=== PATIENT | female | born 1970 | race Caucasian/White ===

== ENCOUNTER → 2017-10-18 | Outpatient (CLI) | payer OTHER ==
[~2017-10-18] MED LIST: CALCIT950 PO; CENTRUM SILVER1 EACH PO; CETI5 PO; DOCU SOFT PO; HYDR-86 PO; LAVAP17G PO; Super B Comple150 MG PO; Ventolin/Prove6.7 GM; [UNRECOGNIZED DRUG - OTHER]
[2017-10-20 13:03] LABS: HPV Genotype 16 Not Detected (NOTDET); HPV Genotype 18 Not Detected (NOTDET)
[2017-10-26 08:16] LABS: HPV High Risk Other Not Detected (NOTDET)
[2017-10-27 09:35] LABS: Source CERVIX
== END | disposition home or self-care (01) ==
LOC: OLS 12:54 → LAB SHORT 12:54
PROVIDERS: Nurse Practitioner Women's Health
DX: Z12.4 Encounter for screening for malignant neoplasm of cervix (principal); Z91.89 Other specified personal risk factors, not elsewhere classified
CPT/HCPCS: 87624; G0123

== ENCOUNTER → 2017-10-28 | Outpatient (CLI) | payer OTHER | END | disposition home or self-care (01) | LOC: LAB SHORT 08:03 → PLD 08:03 | DX: N84.0 Polyp of corpus uteri (principal); N92.0 Excessive and frequent menstruation with regular cycle | CPT/HCPCS: 88305 ==

== ENCOUNTER 2019-02-24 07:27 | Inpatient (IN) | payer OTHER ==
[~2019-02-24] VITALS: Ht 167.6 cm; Wt 115.0 kg
[~2019-02-24 07:27] MED LIST changes: +Prozac20 MG; +TRAZ100
[2019-02-24 08:01] LABS: Hemoglobin 11.8 g/dL (11.5-16.0); Mean Corpuscular HGB 24.1 pg (26.0-34.0); Mean Corpuscular HGB Conc 31.1 g/dL (31.5-36.5); Mean Corpuscular Volume 78 fL (80-100); Mean Platelet Volume 11.4 fL (9.1-12.4); Platelet Count 352 K/mm3 (150-400); RDW Coefficient Variation 15.5 % (11.7-14.2); RDW Standard Deviation 43.5 fL (35.1-46.3); White Blood Cell Count 10.22 K/mm3 (4.00-11.30)
[2019-02-24 08:16] LABS: International Normalized Ratio 1.01; Prothrombin Time Results 10.7 Sec (9.7-11.5)
[2019-02-24 08:21] LABS: Anion Gap 8 mmol/L (6-16); Blood Urea Nitrogen 15 mg/dL (8-24); Bun/Creatinine Ratio 19.8 (12.0-20.0); CO2, Blood 22 mmol/L (21-32); CPK Creatine Kinase 73 U/L (26-193); Calcium, Blood 8.8 mg/dL (8.5-10.1); Chloride, Blood 110 mmol/L (98-108); Cholesterol 255 mg/dL (50-200); Creatinine, Blood 0.76 mg/dL (0.40-1.00); Glomerular Filtration Rate >60 (60-); Glucose, Blood 102 mg/dL (70-99); HDL Cholesterol 64 mg/dL (>39); LDL/HDL RATIO 2.7; Low Density Lipoprotein Chol 170 mg/dL (0-110); Magnesium, Blood 2.3 mg/dL (1.6-2.4); Sodium, Blood 140 mmol/L (136-145); Triglycerides 105 mg/dL (30-160); Troponin I 0.047 ng/mL (0.000-0.040); Very Low Density Lipoprot Chol 21 mg/dL (6-32)
[2019-02-24 08:22] LABS: Creatine Kinase MB <1.0 ng/mL (0.0-3.6); Creatine Kinase MB Index Unable to Calculate (0.0-4.0)
[2019-02-24] MEDS ORDERED: METCAR500 PO (09:19)
[2019-02-24] MEDS ORDERED: VOLTAREN100 GM TOP (09:26)
--- NOTE | 2019-02-24 10:28 | NUR ---
Call to Dr. Bishop as check of the right radial TR band site was abnormal. Noted area proximal to the TR band border has an area of firmness, extending along the medial aspect of the pt's wrist and about 1 cm proximally. It is difficult to ascertain the color of the skin for bruising, as it is also the site of a tatoo, but there does appear to be some slight bruising. Arm was elevated and pressure applied. The pt had stated before that she had no pain whatsoever, but with the application of pressure she said it was sore. Dr. Bishop and and a heart center staff member came to the room and a second TR band was applied. Dr. Bishop said to start deflating the first TR band at 1030 which would be 2 hours from the application time.
--- NOTE | 2019-02-24 11:21 | NUR ---
2 cc air removed from the distal TR band on the right wrist. Pt c/o pain in her forearm, proximal to the TR bands. After 4 cc air removed from the proximal TR band, she stated relief of pain. Denies pain/numbness/tingling in the right hand, states her fingers feel cold. SPO2 98% measured on the 2nd digit of the right hand, fingers are warm to touch, pink, with cap refill of 3 seconds. Distal pulses are palpable.
--- NOTE | 2019-02-24 12:10 | NUR ---
TR bands are fully deflated as of 1200. The pt has no new evidence of bleeding, bruising, swelling, and denies pain other than soreness at the wrist. She has eaten lunch and is surrounded by family and friends at the bedside. Cheerful, pleasantly conversant at this time.
--- NOTE | 2019-02-24 13:18 | NUR ---
TR BAND removed comletely. Evidence of bruising under the original TR band noted, but palpated and found to be mostly soft, with an area of slight firmness 3 cm from the pucture site, about 2 cm in diameter. pt denies any pain other than a c/o headache from not having her usual caffeine drink this morning. Given Tylenol and a cup of black tea at this time per her request. Two of her daughters are at the bedside with her.
--- NOTE | 2019-02-24 15:57 | NUR ---
RIGHT WRIST SITE IS SOFT, NO EVIDENCE OF BLEEDING, HEMATOMA, OR SWELLING. AREA OF SLIGHT BRUISING IS SOFT, AND CLEAR TEGEDERM DRESSING OVER THE PUNCTURE SITE IS CLEAN, DRY AND INTACT. PT DENIES PAIN/DISCOMFORT. AMBULATORY TO THE BATHROOM TO VOID.
--- NOTE | 2019-02-24 17:52 | NUR ---
Since the removal of the TR band, the pt has been keeping her wrist wrapped in the immobilizer board and compliant with instructions to protect the right arm from any forceful movements or use of the arm for pushing, pulling or lifting. She does have an area around the puncture site which is slightly bruised, but soft to the touch now and a trace amount of swelling, which has remained unchanged in the past 4 hours. Since arrival from the heart center, she has denied significant pain/pressure/discomfort other than a brief headache which resolved. Normal sinus rhythm on the laboratory monitor, and vital signs have been stable. She does not require any supplemental oxgygen and has also been ambulatory to the bathroom to void with staff stand by assistance.
[2019-02-25 03:45] LABS: BASOPHILS ABSOLUTE AUTO 0.05 K/mm3 (0.00-0.23); BASOPHILS PERCENT AUTO 1 % (0-2); EOSINOPHILS ABSOLUTE AUTO 0.38 K/mm3 (0.00-0.68); EOSINOPHILS PERCENT AUTO 5 % (0-6); Hematocrit 34.4 % (33.0-51.0); Hemoglobin 10.6 g/dL (11.5-16.0); IMMATURE GRAN ABSOLUTE AUTO 0.03 K/mm3 (0.00-0.10); IMMATURE GRAN PERCENT AUTO 0 % (0-1); LYMPHOCYTES ABSOLUTE AUTO 2.25 K/mm3 (0.84-5.20); LYMPHOCYTES PERCENT AUTO 28 % (21-46); MONOCYTES ABSOLUTE AUTO 0.86 K/mm3 (0.16-1.47); MONOCYTES PERCENT AUTO 11 % (4-13); Mean Corpuscular HGB 24.3 pg (26.0-34.0); Mean Corpuscular HGB Conc 30.8 g/dL (31.5-36.5); Mean Corpuscular Volume 79 fL (80-100); NEUTROPHILS ABSOLUTE AUTO 4.44 K/mm3 (1.96-9.15); NEUTROPHILS PERCENT AUTO 56 % (41-73); Platelet Count 368 K/mm3 (150-400); RDW Coefficient Variation 15.6 % (11.7-14.2); RDW Standard Deviation 44.6 fL (35.1-46.3); Red Blood Cell Count 4.37 M/mm3 (3.80-5.20); White Blood Cell Count 8.01 K/mm3 (4.00-11.30)
[2019-02-25 04:30] LABS: Anion Gap 6 mmol/L (6-16); Blood Urea Nitrogen 12 mg/dL (8-24); Bun/Creatinine Ratio 16.7 (12.0-20.0); CO2, Blood 22 mmol/L (21-32); Calcium, Blood 8.3 mg/dL (8.5-10.1); Chloride, Blood 110 mmol/L (98-108); Creatinine, Blood 0.72 mg/dL (0.40-1.00); Glomerular Filtration Rate >60 (60-); Glucose, Blood 90 mg/dL (70-99); Potassium, Blood 4.8 mmol/L (3.5-5.5); Sodium, Blood 138 mmol/L (136-145)
--- NOTE | 2019-02-25 06:19 | NUR ---
SHIFT SUMMARY PATIENT PLEASENT AND COOPERATIVE THROUGHOUT THE NIGHT. PATIENT DID COMPLAIN OF SOME SORNESS IN HER RIGHT ARM AND CHEST, PATIENT MEDICATED WITH TYLENOL AND PATIENT REPORTED RELIEF FROM SORNESS TO ARM AND CHEST. TR ANGIO ACCESS SITE TO RIGHT WRIST CONTINUES TO HAVE SLIGHT HARDNESS AT SITE AND SLIGHT BURISING AT SITE. SITE DOES NOT APPEAR TO BE UNCHANGED FROM THE BEGINNING OF THE SHIFT. ARMBOARD IN PLACE. PATIENT APPEARED TO NAP ON AND OFF THROUGHOUT THE NIGHT. WILL CONTINUE TO MONITOR PATIENT AND REPORT TO ONCOMING RN.
[2019-02-25] MEDS ORDERED: ASPI81CH PO (07:45)
[2019-02-25] MEDS ORDERED: ATOR40TA PO (07:47)
[2019-02-25] MEDS ORDERED: CLOP75 PO (07:49)
[2019-02-25] MEDS ORDERED: LOSA25 PO (07:50)
[2019-02-25] MEDS ORDERED: METO25 PO (07:51)
== END 2019-02-25 08:20 | disposition home or self-care (01) | DRG 247 ==
LOC: ER 07:27 → PCU 07:50 → ICUW 07:50 → EDBEDREQ 07:52 → PCU 08:44
PROVIDERS: Emergency Medicine; ADMIT Internal Medicine Interventional Cardiology
PROC: 027034Z Dilation of Coronary Artery, One Artery with Drug-eluting Intraluminal Device, Percutaneous Approach (ICD-10-PCS; principal; 2019-02-24)
PROC: 4A023N7 Measurement of Cardiac Sampling and Pressure, Left Heart, Percutaneous Approach (ICD-10-PCS; 2019-02-24)
PROC: B2111ZZ Fluoroscopy of Multiple Coronary Arteries using Low Osmolar Contrast (ICD-10-PCS; 2019-02-24)
DX: I21.3 ST elevation (STEMI) myocardial infarction of unspecified site (principal); I25.10 Atherosclerotic heart disease of native coronary artery without angina pectoris; J45.909 Unspecified asthma, uncomplicated; Z79.899 Other long term (current) drug therapy; Z87.891 Personal history of nicotine dependence
CPT/HCPCS: 36415; 80048; 80061; 82550; 82553; 83735; 84484; 85025; 85027; 85347; 85610; 85730; 93005; 93010; 93306; 93458; 96374; 99152; 99153; 99285-25; A9270; C1725; C1769; C1874; C1887; C1894; C9606; J0461; J1644; J2250; J2405; J3010; J3246; J7030; Q9967

== ENCOUNTER 2020-11-28 11:18 | Day surgery (SDC) | payer OTHER ==
[~2020-11-28] VITALS: Ht 167.6 cm; Wt 119.0 kg
[~2020-11-28 11:18] MED LIST changes: +ASPI81CH PO; +ATOR40TA PO; +CLOP75 PO; +LOSA25 PO; +METCAR500 PO; +METO25 PO; +VOLTAREN100 GM TOP
[2020-11-28] MEDS ORDERED: ZOLOFT50 MG (11:38)
== END 2020-11-28 13:35 | disposition home or self-care (01) ==
LOC: ORSCSDS 11:18
PROVIDERS: Student in an Organized Health Care Education/Training Program
PROC: 0DBL8ZX Excision of Transverse Colon, Via Natural or Artificial Opening Endoscopic, Diagnostic (ICD-10-PCS; principal; 2020-11-28 12:30)
PROC: 0DBN8ZX Excision of Sigmoid Colon, Via Natural or Artificial Opening Endoscopic, Diagnostic (ICD-10-PCS; principal; 2020-11-28 12:30)
PROC: 0DBM8ZX Excision of Descending Colon, Via Natural or Artificial Opening Endoscopic, Diagnostic (ICD-10-PCS; principal; 2020-11-28 12:30)
DX: Z12.11 Encounter for screening for malignant neoplasm of colon (principal); D12.3 Benign neoplasm of transverse colon; D12.4 Benign neoplasm of descending colon; D12.5 Benign neoplasm of sigmoid colon; J45.909 Unspecified asthma, uncomplicated; I10 Essential (primary) hypertension; I25.10 Atherosclerotic heart disease of native coronary artery without angina pectoris; Z79.02 Long term (current) use of antithrombotics/antiplatelets; Z79.899 Other long term (current) drug therapy; Z87.891 Personal history of nicotine dependence; E66.01 Morbid (severe) obesity due to excess calories; Z68.41 Body mass index [BMI] 40.0-44.9, adult
CPT/HCPCS: 88305; J2704; J7120

== ENCOUNTER 2021-04-16 11:09 | Day surgery (SDC) | payer OTHER ==
[~2021-04-16 11:09] MED LIST changes: +ZOLOFT50 MG
[2021-04-16] MEDS ORDERED: Crestor40 MG PO (15:36)
[2021-04-16] MEDS ORDERED: Isosorbide Mono30 MG PO (16:05)
--- NOTE | 2021-04-16 17:32 | NUR ---
PT TOLERATED MEDICATION W/O COMPLAINTS. NO S/S OF ADVERSE REACTION.
== END 2021-04-16 17:05 | disposition home or self-care (01) ==
LOC: ATC 11:09
DX: U07.1 COVID-19 (principal)
CPT/HCPCS: 96365; Q0243

== ENCOUNTER 2023-06-21 06:07 | Day surgery (SDC) | payer OTHER ==
[~2023-06-21] VITALS: Ht 167.6 cm; Wt 128.9 kg
[2023-06-21] VITALS (14 sets, daily range): BP systolic 112–148; BP diastolic 54–82
[~2023-06-21 06:07] MED LIST changes: +Crestor40 MG PO; +DULO60 PO; +EZET10 PO; +Isosorbide Mono30 MG PO; +LATUDA20 M1 PO
--- NOTE | 2023-06-21 07:05 | NUR ---
Ambulatory in Day Surgery History, Chart, Medications and Allergies reviewed before start of procedure. Pre-Op teaching done. Pt verbalizes understanding.
--- NOTE | 2023-06-21 10:28 | NUR ---
06/21/23 Jenn8 SPENSER GARCIA 10ML LIDOCAINE 1% W/EPI WAS INJECTED TO OPSITE SITE BY DR. ROSADO IN OPERATING ROOM.
--- NOTE | 2023-06-21 11:30 | NUR ---
PT ARRIVED TO ROOM 216, SLEEPY/WAKES EASILY/ANSWERS Q'S APPROPRIATELY, HUERTA PATENT & DRAINING, DENIES N&V, DENIES PAIN, VSS/2LNC. FAMILY BEDSIDE.
[2023-06-21 13:51] LABS: BASOPHILS ABSOLUTE AUTO 0.02 K/mm3 (0.00-0.23); BASOPHILS PERCENT AUTO 0 % (0-2); EOSINOPHILS PERCENT AUTO 0 % (0-6); Hematocrit 38.2 % (33.0-51.0); Hemoglobin 11.7 g/dL (11.5-16.0); IMMATURE GRAN ABSOLUTE AUTO 0.06 K/mm3 (0.00-0.10); IMMATURE GRAN PERCENT AUTO 0 % (0-1); LYMPHOCYTES ABSOLUTE AUTO 0.78 K/mm3 (0.84-5.20); LYMPHOCYTES PERCENT AUTO 5 % (21-46); MONOCYTES ABSOLUTE AUTO 0.29 K/mm3 (0.16-1.47); MONOCYTES PERCENT AUTO 2 % (4-13); Mean Corpuscular HGB 25.8 pg (26.0-34.0); Mean Corpuscular HGB Conc 30.6 g/dL (31.5-36.5); Mean Corpuscular Volume 84 fL (80-100); Mean Platelet Volume 11.2 fL (9.1-12.4); NEUTROPHILS ABSOLUTE AUTO 14.35 K/mm3 (1.96-9.15); NEUTROPHILS PERCENT AUTO 93 % (41-73); Platelet Count 292 K/mm3 (150-400); RDW Coefficient Variation 14.8 % (11.7-14.2); RDW Standard Deviation 45.1 fL (35.1-46.3); Red Blood Cell Count 4.54 M/mm3 (3.80-5.20)
[2023-06-21] MEDS ORDERED: Percocet 5-3251 EACH PO (15:06)
[2023-06-21] MEDS ORDERED: IBUP800 PO (15:07)
--- NOTE | 2023-06-21 16:21 | NUR ---
DISCHARGE SUMMARY PT A&OX4, VSS/RA, JUANJO PO, VOIDING, AMB INDEPENDENTLY IN ROOM/HALLWAY, DRESSED SELF, PAIN MANAGED, IV DC'D. DC INS PROVIDED. PT REP UNDERSTANDING THOSE INSTRUCTIONS. LEFT FLOOR VIA WC WITH TEXTILE SCRAP SALVAGER TO GO HOME WITH AND DAUGHTER WITH ALL PERSONAL POSSESSIONS INCLUDING DC PACKET; PT REP SCRIPTS FILLED.
== END 2023-06-21 16:18 | disposition home or self-care (01) ==
LOC: ORSCMMR 06:07 → ORD 07:30 → ORSCMMR 07:30 → ORD 08:45 → SURS 12:23 → ORSCMMR 16:18
PROVIDERS: Obstetrics & Gynecology
PROC: 0UT9FZZ Resection of Uterus, Via Natural or Artificial Opening With Percutaneous Endoscopic Assistance (ICD-10-PCS; principal; 2023-06-21 07:30)
DX: R10.2 Pelvic and perineal pain (principal); C54.1 Malignant neoplasm of endometrium; D25.9 Leiomyoma of uterus, unspecified; N92.0 Excessive and frequent menstruation with regular cycle; I10 Essential (primary) hypertension; J45.909 Unspecified asthma, uncomplicated; E78.00 Pure hypercholesterolemia, unspecified; F32.A Depression, unspecified; I25.10 Atherosclerotic heart disease of native coronary artery without angina pectoris; E66.9 Obesity, unspecified; Z68.42 Body mass index [BMI] 45.0-49.9, adult; Z79.899 Other long term (current) drug therapy
CPT/HCPCS: 36415; 85025; 88309; 88341; 88342; A9270; J0360; J0690; J1100; J1885; J2250; J2371; J2405; J2704; J3010; J7120

== ENCOUNTER → 2025-06-21 | Outpatient (CLI) | payer SELFPAY ==
[~2025-06-21] MED LIST changes: +IBUP800 PO; +Percocet 5-3251 EACH PO
== END ==
LOC: LAB 15:51 → LAB SHORT 15:51
DX: N39.0 Urinary tract infection, site not specified (principal)
CPT/HCPCS: 87086